=== PATIENT | male | born 1955 | race Caucasian/White ===

== ENCOUNTER → 2019-08-28 | Emergency (ER) | payer MEDICAID ==
[~2019-08-28] VITALS: Ht 180.3 cm; Wt 124.7 kg
[~2019-08-28] MED LIST: ASPI81CH43; ENAL10TA86; GLYB5TAB66; HYDROcodone-ACET 10/325MG TAB PO ONE; METF-371; NITR0.4S31; PIOG15TA38; SIMV40TA96; VERA1CAP6
[2019-08-28 19:45] VITALS: BP 129/83
== END | disposition home or self-care (01) ==
LOC: EDUNIT# 18:21 → EDBD 18:29 → ER 18:29
DX: S83.92XA Sprain of unspecified site of left knee, initial encounter (principal); W01.0XXA Fall on same level from slipping, tripping and stumbling without subsequent striking against object, initial encounter; Y93.01 Activity, walking, marching and hiking; Y92.89 Other specified places as the place of occurrence of the external cause; Y99.8 Other external cause status
CPT/HCPCS: 29505; 70450; 73562